=== PATIENT | male | born 1960 | race Hispanic/Latino ===

== ENCOUNTER 2019-01-07 01:29 | Inpatient (IN) | payer SELFPAY ==
[2019-01-07] MEDS ORDERED: Piperacillin/Tazobactam 3.375 GM VIAL ONE (04:09)
[2019-01-07] MEDS ORDERED: Ondansetron ODT 4 MG TAB SL PRN (06:34)
[2019-01-07] MEDS ORDERED: Ondansetron PF 4 MG/2 ML Vial IVP PRN (06:34)
[2019-01-07] MEDS ORDERED: Sodium Chloride 0.9% 1,000 ML IV SCH (06:34)
[2019-01-07] MEDS ORDERED: Morphine 4 MG/ML VIAL SLOW IVP PRN (06:35)
[2019-01-07 07:09] VITALS: BMI 24.7
--- NOTE | 2019-01-07 07:42 | ULT ---
PRELIMINARY REPORT/[facility]/EMERGENCY AFTER HOURS PROCEDURE: EXAM: US Abdomen Limited, Right Upper Quadrant EXAM DATE/TIME: 01/07/2019 1:48 AM CLINICAL HISTORY: 58 years old, male; Pain; Other: Ruq TECHNIQUE: Imaging protocol: Real-time ultrasound of the abdomen with image documentation. Examination was focused on the right upper quadrant. COMPARISON: No relevant prior studies available. FINDINGS: Liver: No mass. Gallbladder: Distended. Cholelithiasis. Gallbladder wall thickening and pericholecystic fluid. Positi ve Jacobson's sign. Findings are concerning for acute cholecystitis. Common bile duct: Unremarkable. Pancreas: Visualized pancreas is unremarkable. Right kidney: No acute findings. No mass. No hydronephrosis. IMPRESSION: Cholelithiasis with findings concerning for acute cholecystitis. Thank you for allowing us to participate in the care of your patient. Dictated and Authenticated by: Dalton Sanchez MD 01/07/2019 2:37 AM Central Time ([place] & [place]) FINAL REPORT BY DR. [facility] EMERGENCY AFTER HOURS STUDY ULTRASOUND ABDOMEN LIMITED: (RIGHT UPPER QUADRANT) DATE: 01/07/2019 HISTORY: 58-year-old male with right upper quadrant abdominal pain FINDINGS: Gallbladder:Distended. A few tiny gallstones. Wall thickness 4 mm. Small amount of pericholecystic fl uid. Very positive sonographic Jacobson's sign. Common duct: 5 mm. Liver:Normal echogenicity Pancreas:Nonspecific sonographic appearance Right kidney:No hydronephrosis IMPRESSION: Cholelithiasis and findings suspicious for acute cholecystitis. Transcribed Date/Time: 01/07/2019 7:57 AM
[2019-01-07] MEDS ORDERED: Piperacillin/Tazobactam 3.375 GM in Sodium Chloride 0.9% 100 ML IVPB SCH (10:00)
[2019-01-07] MEDS ORDERED: Fentanyl 100 MCG/2 ML VIAL ONE ×3 (11:37→13:57)
[2019-01-07] MEDS ORDERED: Bupivacaine/Epinephrine 0.25% 30 ML VIAL ONE (11:38)
[2019-01-07] MEDS ORDERED: Acetaminophen 500 MG TAB PO PRN (11:41)
[2019-01-07] MEDS ORDERED: Ibuprofen 600 MG TAB PO PRN (11:41)
[2019-01-07] MEDS ORDERED: traMADol HCl 50 MG TAB PO PRN ×2 (11:41)
--- NOTE | 2019-01-07 12:02 | HP ---
HISTORY OF PRESENT ILLNESS: Mr. Mckeon is a 58-year-old male patient, who does ranch work, has had several episodes of epigastric pain with back radiation, who presents to the emergency room on this occasion, noted to have a white count of 8 and hemoglobin of 14. Liver function tests are normal. Basic metabolic profile normal. Glucose 114, and ultrasound obtained 01/07/2019, 01:38 reveals gallstones, positive sonographic Jacobson's, normal bile duct caliber, no ductal dilatation. Plan is for laparoscopic video cholecystectomy. He understands risks and benefits procedure and consents. ALLERGIES: NONE. HABITS: Tobacco cessation a month ago. Alcohol, socially. MEDICATIONS: None at home. PAST SURGICAL HISTORY: Noncontributory. PAST MEDICAL HISTORY: Noncontributory. REVIEW OF SYSTEMS: Noncontributory. PHYSICAL EXAMINATION: VITAL SIGNS: Height 5 feet, 4 inches, 143 pounds, 24 BMI. HEAD, EARS, EYES, NOSE, AND THROAT: Unremarkable. LUNGS: Clear to auscultation. CARDIAC: Rhythm without murmur or gallop. ABDOMEN: Soft, nontender, except in his right upper quadrant with mild guarding. EXTREMITIES: Unremarkable. ASSESSMENT AND PLAN: Cholecystitis. I would recommend laparoscopic video cholecystectomy. Risks of infection, bleeding, and visceral and biliary injury explained, he consents. Job ID: [id number]
[2019-01-07] MEDS ORDERED: SUGAMMADEX SODIUM 200 MG/2 ML VIAL ONE (12:56)
[2019-01-07] MEDS ORDERED: Sodium Chloride For Inhalation 0.9% 3 ML NEB ONE (12:57)
[2019-01-07] MEDS ORDERED: Promethazine HCl 25 MG/ML VIAL IM PRN (12:59)
--- NOTE | 2019-01-07 13:28 | OP ---
DATE OF PROCEDURE: 01/07/2019 PREOPERATIVE DIAGNOSIS: Acute chronic cholecystitis, cholelithiasis. POSTOPERATIVE DIAGNOSIS: Acute chronic cholecystitis, cholelithiasis. PROCEDURE PERFORMED: Laparoscopic video cholecystectomy. ANESTHESIA: General, local 0.5% Marcaine with epinephrine 30 mL. DESCRIPTION OF PROCEDURE: The patient was taken to the operating room under general anesthesia. Abdomen was prepared with ChloraPrep and draped in routine fashion. Local anesthetic was infiltrated in the skin and subcutaneous tissue about all port sites. The infraumbilical incision was made. Pneumoperitoneum to 15 mmHg was obtained with a Veress needle, replaced with a 5 port and laparoscope inserted. Right subcostal incision was made, midclavicular and anterior axillary line, the 5 mm port was placed. Right subxiphoid incision was made and 11 port placed. Liver appeared to be normal. Gallbladder was acutely inflamed and edematous. Fundus was grasped at the cephalad. Infundibulum was grasped at the lateral. Cystic artery and duct dissected free. Critical view obtained. Cystic artery and duct double clipped proximally and divided. Gallbladder dissected free from the liver bed, obtaining good hemostasis prior to division of the final peritoneal attachments. Gallbladder and contents removed submitted to Pathology. Good hemostasis ensured. Irrigant and pneumoperitoneum evacuated. All instrument was removed. All skin incisions were approximated with interrupted subdermal 4-0 Monocryl and Bement glue applied. Job ID: [id number]
[2019-01-07] MEDS ORDERED: Lidocaine 2% PF 5 ML VIAL ONE (16:10)
[2019-01-07] MEDS ORDERED: Dexamethasone 20 MG/5 ML VIAL ONE (16:10)
[2019-01-07] MEDS ORDERED: PROPOFOL 200 MG/20 ML VIAL ONE (16:10)
[2019-01-07] MEDS ORDERED: Ketorolac Tromethamine 30 MG/ML VIAL ONE (16:10)
[2019-01-07] MEDS ORDERED: Rocuronium Bromide 10 MG/ML (10ML VIAL) ONE (16:10)
[2019-01-07] MEDS ORDERED: Ondansetron PF 4 MG/2 ML Vial ONE (16:10)
[2019-01-07 16:52] VITALS: BP 101/58; TEMP 98.5
--- NOTE | 2019-01-07 17:07 | DIS ---
DATE OF ADMISSION: 01/07/2019 DATE OF DISCHARGE: 01/07/2019 DISCHARGE DIAGNOSES: Acute cholecystitis and cholelithiasis. PROCEDURE PERFORMED: Laparoscopic video cholecystectomy. DISCHARGE MEDICATIONS: Ultram 50 mg 1 to 2 p.o. q.i.d. p.r.n. pain #22 refills. Follow up in my office in 2 to 3 weeks. [id number] Tylenol and ibuprofen for pain if sufficient. HISTORY: A 58-year-old male with past history of biliary colic, presents with intractable pain and evaluated in the emergency room with gallstones, normal bile duct caliber, normal liver function tests, given intravenous antibiotics overnight in the hospital, undergoing laparoscopic cholecystectomy and discharged home postoperatively. Job ID: [id number]
== END 2019-01-07 17:00 | disposition home or self-care (01) | DRG 419 ==
LOC: ERS 01:29 → 3SE 05:47
PROVIDERS: ADMIT Surgery; ATTEND Surgery
PROC: 0FT44ZZ Resection of Gallbladder, Percutaneous Endoscopic Approach (ICD-10-PCS; principal; 2019-01-07)
DX: K80.12 Calculus of gallbladder with acute and chronic cholecystitis without obstruction (principal)
CPT/HCPCS: 76705; 88304; J1100; J1885; J2001; J2405; J2543; J2704; J3010; J3490